=== PATIENT | male | born 1965 | race Caucasian/White ===

== ENCOUNTER 2019-08-11 18:45 | Inpatient (IN) ==
[2019-08-11] MEDS ORDERED: NALOXONE 0.4 MG/ML VIAL ONE (18:53)
[2019-08-11] MEDS ORDERED: LACTATED RINGERS 1,000 ML IV ONE (19:05)
[2019-08-11 19:20] LABS: Basophils # 0.1 10*3/uL (0.0-0.2); Basophils % 0.4 % (0.0-0.8); Eosinophils % 0.1 % (0.00-10.9); Hematocrit 46.4 VOL% (42.0-52.0); Hemoglobin 14.9 GM/DL (14.0-18.0); Immature Granulocytes % 1.9 %; Immature Granulocytes Absolute 0.42 #; Lymphocytes # 0.9 10*3/uL (1.4-4.0); Mean Corpuscular HGB Conc 32.1 GM/DL (32-36); Mean Corpuscular Volume 100.7 FL (87-102); Mean Platelet Volume 10.7 FL (9.6-12.0); NRBC # 0.03 10*3/uL; Neutrophils % 85.6 % (38.7-73.9); Platelet Count 239 T/CUMM (130-400); Red Blood Count 4.61 MC/CUMM (3.8-5.5); Red Cell Distribution Width 14.6 % (9.3-17.3); White Blood Count 22.3 T/CUMM (4-12)
[2019-08-11 19:31] LABS: INR 1.2; PT Patient Result 12.7 SECS (9.6-12.2); Partial Thromboplastin Time 27.5 SECS (20.8-36.0)
[2019-08-11 19:35] LABS: ABG Base Excess 0.4 MMOL/L (-2.5-2.5); ABG HCO3 24.8 MMOL/L (20-26); ABG Oxygen Saturation 99.8 % (95-100); ABG PH 7.246 (7.35-7.45); ABG TCO2 26.8 MMOL/L (23-27); Allen Test Positive
[2019-08-11 19:43] LABS: ABG PCO2 70.4 MM HG (35-48)
[2019-08-11 19:44] LABS: Band Neutrophils 1 % (0-10); Lymphocytes 5 % (20-55); Macrocytosis 1+; Platelet Estimate Normal; Segmented Neutrophils 89 % (50-85); Total Cells Counted 100
[2019-08-11 19:49] LABS: Alanine Aminotransferase 43 U/L (16-61); Albumin 3.2 G/DL (3.4-5.0); Alkaline Phosphatase 92 U/L (45-117); Aspartate Amino Transferase 32 U/L (0-37); Blood Urea Nitrogen 19 MG/DL (7-18); CKMB % 2.7 %; Calcium 8.1 MG/DL (8.5-10.1); Estimated Glom Filtration Rate 43 ML/MIN; Glucose 111 MG/DL (74-106); Osmolality,Calculated 285.1 MOS/KG (273-304); Total Protein 6.3 G/DL (6.4-8.3)
[2019-08-11 19:50] LABS: Troponin I 0.214 NG/ML (0.00-0.045)
[2019-08-11 20:37] LABS: Apearance,Urine Slightly Hazy (Clear); Bilirubin,Urine Negative (Negative); Blood, Urine Small mg/dL (Negative); Glucose,Urine (UA) Negative (Negative); Hyaline Casts,Urine 4 /LPF (0-3); Ketones,Urine Negative (Negative); Mucus,Urine Occasional /LPF (Occasional); Nitrite,Urine Negative (Negative); Protein,Urine 30 MG/DL; RBC,Urine 3 /HPF (0-4); Squamous Epithelial Cell,Urine Occasional /HPF (0-10); Urine Color Yellow (Yellow); Urine Specific Gravity 1.018 (1.001-1.035); Urine Urobilinogen < 2.0 EU/DL (0.2-1.0); WBC,Urine 8 /HPF (0-6)
[2019-08-11] MEDS ORDERED: SODIUM CHLORIDE 0.9% 1,000 ML IV STA (20:53)
[2019-08-11 21:24] LABS: Barbiturates Screen,Urine Negative (Negative); Benzodiazepines Screen,Urine Positive (Negative); Cannabinoid Screen,Urine Positive (Negative); Opiate Screen,Urine Positive (Negative); Phencyclidine Screen,Urine Negative (Negative)
[2019-08-11 21:27] LABS: ABG Base Excess 0.6 MMOL/L (-2.5-2.5); ABG HCO3 24.8 MMOL/L (20-26); ABG Oxygen Saturation 95.3 % (95-100); ABG PH 7.229 (7.35-7.45); ABG PO2 79.8 MM HG (80-95); ABG TCO2 27.7 MMOL/L (23-27); Allen Test Positive; Pt O2 Delivery Device BIPAP
[2019-08-11 21:31] LABS: ABG PCO2 76.3 MM HG (35-48)
[2019-08-11] MEDS ORDERED: ONDANSETRON 4 MG/2 ML VIAL IV PRN (21:43)
[2019-08-11] MEDS ORDERED: ALBUTEROL 2.5 MG/3 ML NEB RESP TX PRN (21:43)
[2019-08-11] MEDS: PANTOPRAZOLE 40 MG VIAL IV SCH (23:00)
[2019-08-11] MEDS: SODIUM CHLORIDE 0.9% 1,000 ML IV SCH (23:00)
[2019-08-11] MEDS: PIPERACILLIN/TAZOBACTAM 3,375 MG in SODIUM CHLORIDE 0.9% 100 ML IV SCH (23:30)
[2019-08-11] MEDS ORDERED: PANTOPRAZOLE 40 MG VIAL IV ONE (23:34)
[2019-08-11] MEDS ORDERED: PIPERACILLIN/TAZOBACTAM 3,375 MG VIAL IV ONE (23:34)
[2019-08-12] MEDS ORDERED: INFLUENZA VIRUS VACCINE 0.5 ML SYRINGE IM ONE (00:35)
[2019-08-12] MEDS: ALBUTEROL/IPRATROPIUM 3 ML NEB RESP TX SCH ×4 (00:48→20:07)
[2019-08-12] MEDS ORDERED: ETOMIDATE 20 MG/10 ML VIAL IV ONE (01:05)
[2019-08-12] MEDS ORDERED: ROCURONIUM 100 MG/10 ML VIAL IV ONE (01:06)
[2019-08-12 03:49] LABS: ABG Base Excess -0.4 MMOL/L (-2.5-2.5); ABG Oxygen Saturation 99.2 % (95-100); ABG PCO2 61.7 MM HG (35-48); ABG PH 7.274 (7.35-7.45); ABG PO2 227.1 MM HG (80-95); ABG TCO2 29.8 MMOL/L (23-27); Allen Test Positive; Pt O2 Delivery Device Ventilator
[2019-08-12] MEDS ORDERED: MIDAZOLAM 100 MG in SODIUM CHLORIDE 0.9% 80 ML IV PRN (04:34)
[2019-08-12] MEDS ORDERED: fentaNYL INJ 1,250 MCG in SODIUM CHLORIDE 0.9% 225 ML IV PRN (04:34)
[2019-08-12] MEDS: SODIUM CHLORIDE 0.9% 1,000 ML IV SCH ×3 (06:34→19:58)
[2019-08-12 06:55] LABS: Basophils % 0.2 % (0.0-0.8); Hematocrit 41.8 VOL% (42.0-52.0); Hemoglobin 13.8 GM/DL (14.0-18.0); Immature Granulocytes % 0.2 %; Immature Granulocytes Absolute 0.03 #; Lymphocytes % 8.5 % (21.2-54.2); Mean Corpuscular Volume 97.4 FL (87-102); Mean Platelet Volume 11.3 FL (9.6-12.0); Monocytes % 4.7 % (1.7-12.7); NRBC # 0.02 10*3/uL; Neutrophils % 86.4 % (38.7-73.9); Platelet Count 155 T/CUMM (130-400); Red Blood Count 4.29 MC/CUMM (3.8-5.5); Red Cell Distribution Width 14.6 % (9.3-17.3)
[2019-08-12 07:23] LABS: Albumin 2.2 G/DL (3.4-5.0); Bilirubin,Total 0.8 MG/DL (0.2-1.0); Calcium 7.3 MG/DL (8.5-10.1); Osmolality,Calculated 288.1 MOS/KG (273-304)
[2019-08-12 07:36] LABS: Band Neutrophils 28 % (0-10); Eosinophils 1 % (0-10); Lymphocytes 3 % (20-55); Platelet Estimate Normal; Segmented Neutrophils 67 % (50-85); Total Cells Counted 100
[2019-08-12 07:37] LABS: Anisocytosis 1+
[2019-08-12 07:38] LABS: Macrocytosis Slight
[2019-08-12] MEDS ORDERED: SODIUM CHLORIDE 0.9% 1,000 ML IV ONE (09:24)
[2019-08-12] MEDS: NOREPINEPHRINE 8 MG in SODIUM CHLORIDE 0.9% 242 ML IV PRN (09:26)
[2019-08-12] MEDS: POTASSIUM CHLORIDE 20 MEQ/15 ML UDCUP PER TUBE PRN ×2 (10:40→14:01)
[2019-08-12] MEDS: methylPREDNISolone SOD SUC 40 MG/1 ML VIAL IV SCH ×2 (10:40→17:09)
[2019-08-12] MEDS: ENOXAPARIN 40 MG/0.4 ML SYRINGE SUBCUT SCH (10:40)
[2019-08-12] MEDS: PIPERACILLIN/TAZOBACTAM 3,375 MG in SODIUM CHLORIDE 0.9% 100 ML IV SCH ×2 (14:01→22:20)
[2019-08-12] MEDS: PANTOPRAZOLE 40 MG VIAL IV SCH (22:20)
[2019-08-13 00:35] LABS: Basophils % 0.2 % (0.0-0.8); Hematocrit 39.5 VOL% (42.0-52.0); Immature Granulocytes % 0.5 %; Immature Granulocytes Absolute 0.11 #; Lymphocytes # 0.4 10*3/uL (1.4-4.0); Lymphocytes % 2.1 % (21.2-54.2); Mean Corpuscular HGB Conc 32.9 GM/DL (32-36); Mean Corpuscular Volume 98.3 FL (87-102); Mean Platelet Volume 11.4 FL (9.6-12.0); Monocytes % 2.5 % (1.7-12.7); Neutrophils % 94.7 % (38.7-73.9); Platelet Count 160 T/CUMM (130-400); Red Blood Count 4.02 MC/CUMM (3.8-5.5); Red Cell Distribution Width 14.6 % (9.3-17.3); White Blood Count 20.1 T/CUMM (4-12)
[2019-08-13 01:27] LABS: Albumin 2.1 G/DL (3.4-5.0); Bilirubin,Total 1.2 MG/DL (0.2-1.0); Calcium 7.9 MG/DL (8.5-10.1); Osmolality,Calculated 299.7 MOS/KG (273-304); Total Protein 5.2 G/DL (6.4-8.3)
[2019-08-13] MEDS: methylPREDNISolone SOD SUC 40 MG/1 ML VIAL IV SCH ×3 (01:28→17:03)
[2019-08-13] MEDS: ALBUTEROL/IPRATROPIUM 3 ML NEB RESP TX SCH ×4 (01:51→19:35)
[2019-08-13 02:59] LABS: Band Neutrophils 11 % (0-10); Lymphocytes 5 % (20-55); Segmented Neutrophils 83 % (50-85); Total Cells Counted 100
[2019-08-13 03:00] LABS: Anisocytosis 1+
[2019-08-13 03:01] LABS: Platelet Estimate Adequate
[2019-08-13 03:34] LABS: ABG Base Excess 1.1 MMOL/L (-2.5-2.5); ABG HCO3 25.4 MMOL/L (20-26); ABG Oxygen Saturation 98.7 % (95-100); ABG PCO2 57.1 MM HG (35-48); ABG PH 7.311 (7.35-7.45); ABG TCO2 25.4 MMOL/L (23-27)
[2019-08-13] MEDS: NOREPINEPHRINE 8 MG in SODIUM CHLORIDE 0.9% 242 ML IV PRN (03:42)
[2019-08-13] MEDS: SODIUM CHLORIDE 0.9% 1,000 ML IV SCH ×4 (05:06→19:33)
[2019-08-13] MEDS: PIPERACILLIN/TAZOBACTAM 3,375 MG in SODIUM CHLORIDE 0.9% 100 ML IV SCH ×3 (05:37→21:16)
[2019-08-13] MEDS: ENOXAPARIN 40 MG/0.4 ML SYRINGE SUBCUT SCH (09:09)
[2019-08-13] MEDS: POTASSIUM CHLORIDE 20 MEQ/15 ML UDCUP PER TUBE PRN ×2 (10:05→12:30)
[2019-08-13] MEDS: PANTOPRAZOLE 40 MG VIAL IV SCH (21:15)
[2019-08-14] MEDS: ALBUTEROL/IPRATROPIUM 3 ML NEB RESP TX SCH ×4 (01:02→18:06)
[2019-08-14] MEDS: SODIUM CHLORIDE 0.9% 1,000 ML IV SCH ×4 (01:52→22:43)
[2019-08-14] MEDS: methylPREDNISolone SOD SUC 40 MG/1 ML VIAL IV SCH ×3 (02:01→21:27)
[2019-08-14 04:31] LABS: ABG Base Excess 3.1 MMOL/L (-2.5-2.5); ABG HCO3 27.2 MMOL/L (20-26); ABG Oxygen Saturation 97.6 % (95-100); ABG PCO2 46.1 MM HG (35-48); ABG PH 7.401 (7.35-7.45); ABG PO2 90.5 MM HG (80-95); ABG TCO2 25.2 MMOL/L (23-27); Allen Test Positive; Pt O2 Delivery Device Ventilator
[2019-08-14 05:25] LABS: Basophils % 0.2 % (0.0-0.8); Hematocrit 39.8 VOL% (42.0-52.0); Hemoglobin 12.4 GM/DL (14.0-18.0); Immature Granulocytes % 0.8 %; Lymphocytes # 0.6 10*3/uL (1.4-4.0); Lymphocytes % 4.8 % (21.2-54.2); Mean Corpuscular HGB Conc 31.2 GM/DL (32-36); Mean Corpuscular Volume 103.6 FL (87-102); Mean Platelet Volume 12.7 FL (9.6-12.0); Monocytes % 2.2 % (1.7-12.7); Platelet Count 104 T/CUMM (130-400); Red Blood Count 3.84 MC/CUMM (3.8-5.5); White Blood Count 12.6 T/CUMM (4-12)
[2019-08-14 05:47] LABS: Calcium 8.4 MG/DL (8.5-10.1); Osmolality,Calculated 295.1 MOS/KG (273-304); Prealbumin 13.5 MG/DL (20-40)
[2019-08-14] MEDS: PIPERACILLIN/TAZOBACTAM 3,375 MG in SODIUM CHLORIDE 0.9% 100 ML IV SCH ×3 (06:16→21:30)
[2019-08-14 06:50] LABS: Anisocytosis Slight; Band Neutrophils 17 % (0-10); Lymphocytes 3 % (20-55); Macrocytosis Slight; Platelet Estimate Adequate; Segmented Neutrophils 80 % (50-85); Total Cells Counted 100
[2019-08-14 06:51] LABS: Smudge Cells Few
[2019-08-14] MEDS: ENOXAPARIN 40 MG/0.4 ML SYRINGE SUBCUT SCH (08:38)
[2019-08-14] MEDS: POTASSIUM CHLORIDE 20 MEQ/15 ML UDCUP PER TUBE PRN (08:39)
[2019-08-14] MEDS: METOCLOPRAMIDE 10 MG/2 ML VIAL IV SCH ×3 (10:52→21:28)
[2019-08-14] MEDS: BISACODYL 5 MG TABLET PO SCH (10:53)
[2019-08-14] MEDS: DEXMEDETOMIDINE 200 MCG in SODIUM CHLORIDE 0.9% 48 ML IV PRN ×2 (11:03→14:44)
[2019-08-14] MEDS: DEXMEDETOMIDINE 400 MCG in SODIUM CHLORIDE 0.9% 96 ML IV PRN ×2 (17:25→22:51)
[2019-08-14] MEDS: INSULIN REGULAR 100 UNIT/ML SUBCUT SCH (17:47)
[2019-08-14] MEDS: PANTOPRAZOLE 40 MG VIAL IV SCH (21:30)
[2019-08-14] MEDS ORDERED: fentaNYL 100 MCG/2 ML VIAL IV ONE (21:40)
[2019-08-14] MEDS ORDERED: LORazepam 2 MG/1 ML VIAL IV ONE (21:56)
[2019-08-15] MEDS: ALBUTEROL/IPRATROPIUM 3 ML NEB RESP TX SCH ×4 (00:57→19:15)
[2019-08-15] MEDS: METOCLOPRAMIDE 10 MG/2 ML VIAL IV SCH ×3 (01:18→13:01)
[2019-08-15] MEDS: INSULIN REGULAR 100 UNIT/ML SUBCUT SCH ×5 (01:21→23:32)
[2019-08-15] MEDS: LORazepam 2 MG/1 ML VIAL IV PRN ×2 (04:13→07:51)
[2019-08-15] MEDS: DEXMEDETOMIDINE 400 MCG in SODIUM CHLORIDE 0.9% 96 ML IV PRN (04:14)
[2019-08-15 04:29] LABS: ABG Base Excess -0.1 MMOL/L (-2.5-2.5); ABG HCO3 24.3 MMOL/L (20-26); ABG Oxygen Saturation 93.6 % (95-100); ABG PCO2 43.7 MM HG (35-48); ABG PH 7.373 (7.35-7.45); ABG PO2 68.6 MM HG (80-95); ABG TCO2 22.3 MMOL/L (23-27); Pt O2 Delivery Device Ventilator
[2019-08-15] MEDS: SODIUM CHLORIDE 0.9% 1,000 ML IV SCH (04:57)
[2019-08-15] MEDS: PIPERACILLIN/TAZOBACTAM 3,375 MG in SODIUM CHLORIDE 0.9% 100 ML IV SCH ×3 (04:59→21:31)
[2019-08-15 06:15] LABS: Basophils % 0.2 % (0.0-0.8); Hematocrit 38.1 VOL% (42.0-52.0); Hemoglobin 12.3 GM/DL (14.0-18.0); Immature Granulocytes % 1.6 %; Immature Granulocytes Absolute 0.18 #; Lymphocytes # 0.9 10*3/uL (1.4-4.0); Lymphocytes % 8.3 % (21.2-54.2); Mean Corpuscular HGB Conc 32.3 GM/DL (32-36); Mean Corpuscular Volume 98.2 FL (87-102); Mean Platelet Volume 12.3 FL (9.6-12.0); Monocytes % 3.1 % (1.7-12.7); NRBC # 0.06 10*3/uL; Neutrophils % 86.8 % (38.7-73.9); Platelet Count 126 T/CUMM (130-400); Red Blood Count 3.88 MC/CUMM (3.8-5.5); Red Cell Distribution Width 14.7 % (9.3-17.3); White Blood Count 10.9 T/CUMM (4-12)
[2019-08-15] MEDS: methylPREDNISolone SOD SUC 40 MG/1 ML VIAL IV SCH ×2 (09:17→21:29)
[2019-08-15] MEDS: BISACODYL 5 MG TABLET PO SCH (09:18)
[2019-08-15] MEDS: ENOXAPARIN 40 MG/0.4 ML SYRINGE SUBCUT SCH (09:18)
[2019-08-16] MEDS: ALBUTEROL/IPRATROPIUM 3 ML NEB RESP TX SCH ×4 (01:15→19:42)
[2019-08-16 05:05] LABS: Basophils % 0.3 % (0.0-0.8); Hematocrit 37.9 VOL% (42.0-52.0); Hemoglobin 12.3 GM/DL (14.0-18.0); Immature Granulocytes % 2.9 %; Immature Granulocytes Absolute 0.27 #; Lymphocytes # 1.1 10*3/uL (1.4-4.0); Lymphocytes % 11.8 % (21.2-54.2); Mean Corpuscular HGB Conc 32.5 GM/DL (32-36); Mean Corpuscular Volume 97.9 FL (87-102); Mean Platelet Volume 12.4 FL (9.6-12.0); Monocytes % 5.9 % (1.7-12.7); Neutrophils % 79.1 % (38.7-73.9); Platelet Count 102 T/CUMM (130-400); Red Blood Count 3.87 MC/CUMM (3.8-5.5); Red Cell Distribution Width 14.5 % (9.3-17.3); White Blood Count 9.3 T/CUMM (4-12)
[2019-08-16 05:28] LABS: Calcium 8.1 MG/DL (8.5-10.1); Osmolality,Calculated 298.7 MOS/KG (273-304)
[2019-08-16] MEDS: INSULIN REGULAR 100 UNIT/ML SUBCUT SCH (05:42)
[2019-08-16] MEDS: POTASSIUM CHLORIDE 20 MEQ TABLET PO PRN ×4 (05:57→22:00)
[2019-08-16] MEDS: PIPERACILLIN/TAZOBACTAM 3,375 MG in SODIUM CHLORIDE 0.9% 100 ML IV SCH ×3 (05:57→22:00)
[2019-08-16] MEDS: BISACODYL 5 MG TABLET PO SCH (08:59)
[2019-08-16] MEDS: PANTOPRAZOLE 40 MG TABLET PO SCH (08:59)
[2019-08-16] MEDS: methylPREDNISolone SOD SUC 40 MG/1 ML VIAL IV SCH ×2 (09:00→22:00)
[2019-08-16] MEDS: ENOXAPARIN 40 MG/0.4 ML SYRINGE SUBCUT SCH (09:03)
[2019-08-16] MEDS: INSULIN LISPRO 100 UNIT/ML SUBCUT SCH ×2 (17:16→22:00)
[2019-08-16] MEDS: SPIRONOLACTONE 25 MG TABLET PO SCH (22:00)
[2019-08-17] MEDS: KETOROLAC 30 MG/1 ML VIAL IV PRN ×2 (00:20→18:40)
[2019-08-17] MEDS: ALBUTEROL/IPRATROPIUM 3 ML NEB RESP TX SCH ×4 (00:39→19:17)
[2019-08-17 05:05] LABS: Basophils % 0.2 % (0.0-0.8); Hematocrit 35.9 VOL% (42.0-52.0); Hemoglobin 11.8 GM/DL (14.0-18.0); Lymphocytes % 9.8 % (21.2-54.2); Mean Corpuscular HGB Conc 32.9 GM/DL (32-36); Mean Corpuscular Volume 96.5 FL (87-102); Mean Platelet Volume 12.3 FL (9.6-12.0); Monocytes % 3.9 % (1.7-12.7); Neutrophils % 83.1 % (38.7-73.9); Platelet Count 104 T/CUMM (130-400); Red Blood Count 3.72 MC/CUMM (3.8-5.5); Red Cell Distribution Width 13.9 % (9.3-17.3); White Blood Count 10.1 T/CUMM (4-12)
[2019-08-17 05:30] LABS: Calcium 8.1 MG/DL (8.5-10.1); Osmolality,Calculated 292.8 MOS/KG (273-304)
[2019-08-17] MEDS: PIPERACILLIN/TAZOBACTAM 3,375 MG in SODIUM CHLORIDE 0.9% 100 ML IV SCH (06:11)
[2019-08-17] MEDS: SPIRONOLACTONE 25 MG TABLET PO SCH ×2 (09:32→21:02)
[2019-08-17] MEDS: methylPREDNISolone SOD SUC 40 MG/1 ML VIAL IV SCH (09:32)
[2019-08-17] MEDS: ENOXAPARIN 40 MG/0.4 ML SYRINGE SUBCUT SCH (09:32)
[2019-08-17] MEDS: INSULIN LISPRO 100 UNIT/ML SUBCUT SCH ×4 (09:32→21:04)
[2019-08-17] MEDS: BISACODYL 5 MG TABLET PO SCH (09:33)
[2019-08-17] MEDS: PANTOPRAZOLE 40 MG TABLET PO SCH (09:33)
[2019-08-17] MEDS: AMOXICILLIN/CLAV 500 MG TABLET PO SCH (21:03)
[2019-08-18] MEDS: ALBUTEROL/IPRATROPIUM 3 ML NEB RESP TX SCH ×3 (01:01→13:17)
[2019-08-18] MEDS: PANTOPRAZOLE 40 MG TABLET PO SCH (09:00)
[2019-08-18] MEDS: INSULIN LISPRO 100 UNIT/ML SUBCUT SCH ×2 (09:00→12:24)
[2019-08-18] MEDS: SPIRONOLACTONE 25 MG TABLET PO SCH (09:00)
[2019-08-18] MEDS: BISACODYL 5 MG TABLET PO SCH (09:00)
[2019-08-18] MEDS: ENOXAPARIN 40 MG/0.4 ML SYRINGE SUBCUT SCH (09:00)
[2019-08-18] MEDS: chlordiazePOXIDE 25 MG CAPSULE PO SCH ×2 (09:00→13:20)
[2019-08-18] MEDS: AMOXICILLIN/CLAV 500 MG TABLET PO SCH (09:03)
[2019-08-18 12:13] VITALS: BP 148/73
[2019-08-19] MEDS ORDERED: INFLUENZA VIRUS VACCINE 0.5 ML SYRINGE IM ONE (12:00)
== END 2019-08-18 16:54 | DRG 917 ==
LOC: EDUNIT# → EDBD → N.ED 18:45 → SUATTDRO 23:34 → N.EDINP 23:34 → N.CC 23:55 → N.TELES 08-15 18:04
PROVIDERS: ADMIT Internal Medicine; ATTEND Family Medicine